=== PATIENT | male | born 1990 | race Caucasian/White ===

== ENCOUNTER 2019-09-05 21:20 | Emergency (ER) | payer MEDICAID ==
[2019-09-05 21:31] VITALS: BP 123/84
== END 2019-09-05 21:52 | disposition home or self-care (01) ==
LOC: ED 21:40
DX: K08.89 Other specified disorders of teeth and supporting structures (principal); K01.1 Impacted teeth; Z88.2 Allergy status to sulfonamides
CPT/HCPCS: 99283

== ENCOUNTER 2019-09-06 07:12 | Emergency (ER) | payer MEDICAID ==
[~2019-09-06] VITALS: Ht 175.3 cm; Wt 59.8 kg
[2019-09-06 07:15] VITALS: BP 130/91
[2019-09-06] MEDS ORDERED: KETOROLAC 30 MG/1 ML IM ONE (07:30)
[2019-09-06] MEDS ORDERED: ACETAMINOPHEN 500 MG TABLET PO ONE (07:30)
[2019-09-06] MEDS ORDERED: KETOROLAC 30 MG/1 ML ONE (07:36)
[2019-09-06] MEDS ORDERED: ACETAMINOPHEN 500 MG TABLET ONE (07:36)
--- NOTE | 2019-09-06 07:41 | NUR ---
PT MEDICATED PER ORDER. PT OFFERED DENTAL REFERAL LIST. PT STATED HE WAS GIVEN ONE AT THE HOSPITAL LAST NIGHT.
== END 2019-09-06 07:53 | disposition home or self-care (01) ==
LOC: ED 07:40
DX: K08.89 Other specified disorders of teeth and supporting structures (principal)
CPT/HCPCS: 96372; 99283; J1885

== ENCOUNTER 2020-05-31 06:39 | Emergency (ER) | payer MEDICAID ==
[~2020-05-31] VITALS: Ht 172.7 cm; Wt 59.5 kg
[2020-05-31 06:41] VITALS: BP 135/81
[2020-05-31] MEDS ORDERED: DEXAMETHASONE 4 MG/ML, 1ML ONE (06:58)
[2020-05-31] MEDS ORDERED: DEXAMETHASONE 4 MG/ML, 1ML PO ONE (07:00)
--- NOTE | 2020-05-31 07:01 | NUR ---
PT C/O SORE THROAT AND EAR ACHE TIMES 3 DAYS. PT DENIES FEVER, COUGH, OR SOB.
--- NOTE | 2020-05-31 07:15 | NUR ---
PT REC'VD DISCHARGE INSTRUCTIONS AND EDUCATION. PT HAD NO QUESTIONS.
--- NOTE | 2020-05-31 07:20 | NUR ---
PT AMBULTED TO CO AREA, STEADY GAIT.
== END 2020-05-31 07:22 | disposition home or self-care (01) ==
LOC: ED 07:16
DX: H66.001 Acute suppurative otitis media without spontaneous rupture of ear drum, right ear (principal); J02.0 Streptococcal pharyngitis; R09.81 Nasal congestion; F17.210 Nicotine dependence, cigarettes, uncomplicated
CPT/HCPCS: 99283; 99406; J1100

== ENCOUNTER 2020-08-30 00:11 | Emergency (ER) | payer MEDICAID ==
[~2020-08-30] VITALS: Ht 175.3 cm; Wt 60.1 kg
--- NOTE | 2020-08-30 00:24 | NUR ---
PHYSICIAN VICE PRESIDENT ASSESSED DR FENTON WITH EXAM.
[2020-08-30 01:11] VITALS: BP 121/62
== END 2020-08-30 01:13 | disposition home or self-care (01) ==
LOC: ED 01:01
DX: A60.01 Herpesviral infection of penis (principal); A69.1 Other Vincent's infections; B00.2 Herpesviral gingivostomatitis and pharyngotonsillitis; F17.200 Nicotine dependence, unspecified, uncomplicated
CPT/HCPCS: 99283

== ENCOUNTER 2020-10-16 00:40 | Emergency (ER) | payer MEDICAID ==
[~2020-10-16] VITALS: Ht 175.3 cm; Wt 57.4 kg
[2020-10-16] MEDS ORDERED: LIDOCAINE 2% VISCOUS 15 ML UDC MM ONE (01:30)
[2020-10-16 01:53] VITALS: BP 99/73
== END 2020-10-16 02:03 | disposition home or self-care (01) ==
LOC: ED 02:00
DX: K02.9 Dental caries, unspecified (principal); F17.200 Nicotine dependence, unspecified, uncomplicated
CPT/HCPCS: 99283

== ENCOUNTER 2020-10-18 08:37 | Emergency (ER) | payer MEDICAID ==
[~2020-10-18] VITALS: Ht 175.3 cm; Wt 58.3 kg
--- NOTE | 2020-10-18 08:45 | NUR ---
PT CALLED TO TRIAGE X1, IN RR.
[2020-10-18 08:50] VITALS: BP 114/66
--- NOTE | 2020-10-18 08:59 | NUR ---
PT NOT IN ROOM. PER POWDER LINE REPAIRER, PT STATED HE NEEDED TO GO TO VEHICLE AND WILL RETURN.
--- NOTE | 2020-10-18 09:25 | NUR ---
PT DID NOT RETURN TO ER ROOM AND NOT IN LOBBY. ELOPEMENT DISCHARGE, CHAMBER MAGISTRATE NOTIFIED.
== END 2020-10-18 09:26 | disposition left against medical advice (07) ==
LOC: ED 09:20
DX: R10.9 Unspecified abdominal pain (principal); Z53.21 Procedure and treatment not carried out due to patient leaving prior to being seen by health care provider

== ENCOUNTER 2020-10-28 04:47 | Emergency (ER) | payer MEDICAID ==
[~2020-10-28] VITALS: Ht 175.3 cm; Wt 57.7 kg
[2020-10-28 04:51] VITALS: BP 108/69
[2020-10-28] MEDS ORDERED: IBUPROFEN 800 MG TABLET ONE (05:36)
[2020-10-28] MEDS ORDERED: IBUPROFEN 800 MG TABLET PO ONE (06:00)
== END 2020-10-28 06:23 | disposition home or self-care (01) ==
LOC: ED 05:52
DX: K04.7 Periapical abscess without sinus (principal); K02.9 Dental caries, unspecified
CPT/HCPCS: 99283

== ENCOUNTER 2020-11-28 23:22 | Emergency (ER) | payer MEDICAID ==
[~2020-11-28] VITALS: Ht 175.3 cm; Wt 57.5 kg
[2020-11-28 23:35] VITALS: BP 108/84
[2020-11-28 23:57] LABS: BASOPHILS % (AUTO) 1 % (0-1); EOSINOPHILS % (AUTO) 1 % (1-7); LYMPHOCYTES % (AUTO) 25 % (22-44); MEAN CORPUSCULAR HEMOGLOBIN 31.1 pg (27.5-34.5); MEAN PLATELET VOLUME 6.9 fL (7.4-10.4); MONOCYTES % (AUTO) 17 % (2-9); NEUTROPHILS % (AUTO) 57 % (42-75); PLATELET COUNT 281 x10^3/uL (130-400); RED CELL DISTRIBUTION WIDTH 14.3 % (9.4-14.8)
[2020-11-29 00:07] LABS: ANION GAP 4 mmol/L (5-15); CALCIUM 8.9 mg/dL (8.5-10.1); CHLORIDE 108 mmol/L (98-107); CREATININE 1.31 mg/dL (0.7-1.3)
== END 2020-11-29 02:08 | disposition home or self-care (01) ==
LOC: ED 23:59
DX: K02.9 Dental caries, unspecified (principal); K08.89 Other specified disorders of teeth and supporting structures; K13.70 Unspecified lesions of oral mucosa; F17.200 Nicotine dependence, unspecified, uncomplicated
CPT/HCPCS: 36415; 80048; 85025; 99283

== ENCOUNTER 2020-12-15 14:01 | Emergency (ER) | payer MEDICAID ==
[~2020-12-15] VITALS: Ht 175.3 cm; Wt 58.3 kg
[2020-12-15 14:56] VITALS: BP 105/66
== END 2020-12-15 16:29 ==
LOC: ED 14:15
DX: K05.00 Acute gingivitis, plaque induced (principal)
CPT/HCPCS: 99283